=== PATIENT | male | born 1940 | race Caucasian/White ===

== ENCOUNTER 2018-12-13 12:13 | Day surgery (SDC) | payer MEDICARE, OTHER ==
[~2018-12-13 12:13] MED LIST: Lidocaine 1% PF 5 ML VIAL ONE
[2018-12-13] MEDS ORDERED: Midazolam HCl 5 mg/5 ml Vial ONE (13:03)
[2018-12-13] MEDS ORDERED: PROPOFOL 40 ML ONE (13:03)
--- NOTE | 2018-12-13 14:07 | MRI ---
MRI Lumbar Spine WO Con History: M [age] intervertebral disc disorders with radiculopathy, lumbar region Comparison: None. Findings: The aortic contour is nonaneurysmal. No retroperitoneal periaortic adenopathy. T2 hyperinte nse foci of both kidneys are enlarged suggestive of cysts. Paraspinal musculature is symmetric. Exam is limited due to motion. No marrow infiltrative process. The conus medullaris terminates near the mid L1 vertebral body. Levels are as follows: L1/L2: Mild hypertrophic facet arthropathy. Low-grade circumferential disc bulge. Mild bilateral neur al foraminal narrowing. L2/L3: Moderate hypertrophic facet arthropathy with small effusions. Low-grade circumferential disc b ulge. Moderate bilateral neural foraminal narrowing. L3/L4: Moderate posterior degenerative disc space height loss. Moderate hypertrophic facet arthropath y. Bilateral subforaminal disc osteophyte complexes cause moderate to severe right and moderate left neural foraminal narrowing. Minimal effacement of ventral CSF space. Spinal canal measures appro ximately 9 mm. L4/L5: Mild disc desiccation. Circumferential disc bulge. Severe hypertrophic facet arthropathy. Mode rate bilateral neural foraminal narrowing. L5/S1: Mild posterior degenerative disc space height loss. Moderate to severe hypertrophic facet arth ropathy. Moderate bilateral neural foraminal narrowing, slightly greater on the left. Impression: Moderate spondylosis as described with multilevel neural foraminal narrowing.
== END 2018-12-13 14:53 | disposition home or self-care (01) ==
LOC: SDC/OP 12:13
PROVIDERS: ATTEND Specialist
DX: M51.16 Intervertebral disc disorders with radiculopathy, lumbar region (principal); M47.26 Other spondylosis with radiculopathy, lumbar region; M48.061 Spinal stenosis, lumbar region without neurogenic claudication; Z88.0 Allergy status to penicillin; Z91.018 Allergy to other foods
CPT/HCPCS: 72148; J2250; J2704